=== PATIENT | male | born 1955 | race Hispanic/Latino ===

== ENCOUNTER → 2021-12-02 | Outpatient (CLI) | payer MEDICARE, OTHER ==
[~2021-12-02] MED LIST: AEC81 PO; ATOR-2 PO; CALC-911 PO; DONE10TA43 PO; EMPA10TA PO; IOHEXOL-350 75 ML VIAL IV ONE; LISI2.5T13 PO; MEMA5TAB42 PO; METF-445 PO; MULT-1259 PO; OMEG-184 PO; OXYB-66 PO; SERT-439 PO
== END | disposition home or self-care (01) ==
LOC: RAH 19:35
PROVIDERS: ATTEND Internal Medicine
DX: K63.1 Perforation of intestine (nontraumatic) (principal); K52.9 Noninfective gastroenteritis and colitis, unspecified; R14.0 Abdominal distension (gaseous); J90 Pleural effusion, not elsewhere classified; I31.3 Pericardial effusion (noninflammatory); Z93.1 Gastrostomy status
CPT/HCPCS: 74177; Q9967